=== PATIENT | female | born 1975 | race Hispanic/Latino ===

== ENCOUNTER 2018-04-13 05:46 | Day surgery (SDC) | payer MEDICAID ==
[2018-04-13] MEDS ORDERED: NACL BACTERIOSTATIC INFILTRATI ONE (06:42)
[2018-04-13] MEDS ORDERED: VERSED ONE ×2 (06:47→07:00)
[2018-04-13] MEDS ORDERED: LACTATED RINGERS 1,000 ML ONE (06:47)
[2018-04-13] MEDS ORDERED: DILAUDID ONE ×2 (07:00→08:27)
[2018-04-13] MEDS ORDERED: DILAUDID IV PRN (07:11)
[2018-04-13] MEDS ORDERED: PEPCID IV ONE (07:28)
[2018-04-13] MEDS ORDERED: BENADRYL ONE (07:28)
[2018-04-13] MEDS ORDERED: VALIUM ONE (07:28)
[2018-04-13] MEDS ORDERED: VERSED IV ONE (07:53)
[2018-04-13] MEDS ORDERED: DIPRIVAN 10 MG/ML IV ONE ×2 (07:57→08:28)
[2018-04-13] MEDS ORDERED: SUBLIMAZE ONE (07:57)
[2018-04-13] MEDS ORDERED: XYLOCAINE MPF 2% ONE (07:57)
[2018-04-13] MEDS ORDERED: VERSED IV NR (08:00)
[2018-04-13] MEDS ORDERED: LACTATED RINGERS 1,000 ML IV SCH ×2 (08:00→10:00)
[2018-04-13] MEDS ORDERED: PEPCID IV NR (08:00)
[2018-04-13] MEDS ORDERED: ANCEF/STERILE WATER 2 GM/20 ML 2 GM/20 ML SYRINGE IV ONE (08:40)
[2018-04-13] MEDS ORDERED: ANCEF/STERILE WATER 2 GM/20 ML IV NR (10:00)
--- NOTE | 2018-04-13 11:02 | Short Stay Summary ---
Short Stay Documentation Date of service: 04/13/18 - History H&P: obtained from office - Allergies and Medications Current Medications: Allergies ciprofloxacin [From Cipro] Allergy (Verified 04/07/18 13:48) Seizure erythromycin base Allergy (Verified 04/07/18 13:48) Anaphylaxis ketorolac [From Toradol] Allergy (Verified 04/07/18 13:48) Head swells, itching sulfamethoxazole [From Bactrim] Adverse Reaction (Verified 04/13/18 07:55) Diarrhea trimethoprim [From Bactrim] Adverse Reaction (Verified 04/13/18 07:56) Diarrhea PT STATES IT "REALLY MESSES ME UP" BUT I DON'T HAVE A SEIZURE WITH IT SO I'M OKAY TAKING IT. I TOLD HER I WAS STILL GOING TO LIST IT AN ALLERGY Home Medications Medication Instructions Recorded Confirmed Last Taken Type HYDROcodone/APAP 5-325 [[place] 1 each PO Q6HR PRN 04/07/18 04/13/18 2 Weeks Ago History 5/325] ~03/30/18 Active Medications Cefazolin Sodium (Ancef/Sterile Water 2 Gm/20 Ml) 2 gm IV PREOP NR Stop: 04/13/18 23:59 Famotidine (Pepcid) 20 mg IV PREOP NR Stop: 04/13/18 20:00 Hydromorphone HCl (Dilaudid) 0.5 mg IV Q10MIN PRN PRN Reason: Pain , Severe (7-10) Stop: 04/13/18 20:00 Last Admin: 04/13/18 10:05 Dose: 0.5 mg Documented by: Lactated Ringer's (Lactated Ringers) 1,000 mls @ 100 mls/hr IV DIRECT LYNNE Midazolam HCl (Versed) 2 mg IV PREOP NR Stop: 04/13/18 23:59 - Brief post op/procedure progress note Date of procedure: 04/13/18 Pre-op diagnosis: Right renal stone 13mm Post-op diagnosis: same Procedure: right renal eswl Anesthesia: GETA Findings: good vis Surgeon: ZENA KING Estimated blood loss: minimal Pathology: none Condition: stable - Hospital course Hospital course: orpacc[place]ome - Disposition Condition at discharge: Good Disposition: DC-01 TO HOME OR SELFCARE Short Stay Discharge Plan Activity: advance as tolerated Diet: advance as tolerated Follow up with: JACINDA MORALES MD [Staff Physician] - 7 Days
[2018-04-13 11:05] VITALS: BP 112/66
--- NOTE | 2018-04-17 10:22 | Operative Report ---
PREOPERATIVE DIAGNOSIS: Right renal 13 mm stone. POSTOPERATIVE DIAGNOSIS: Right renal 13 mm stone. PROCEDURE: Right renal extracorporeal shockwave lithotripsy. SURGEON: Burton Otero MD ANESTHESIA: General. SPECIMENS: None. ESTIMATED BLOOD LOSS: Minimal. COMPLICATIONS: None. FINDINGS: Good visualization, mild decreased density at the end of procedure. CLINICAL INDICATIONS: The patient counseled RCBA, antibiotics, SCD. DESCRIPTION OF PROCEDURE: The patient was transferred to the OR suite in supine position, anesthesia begun. Biplanar fluoroscopy was used to target the stone with an F2, good visualization of the stone. A total of 2500 shocks were delivered, maximum of 7 kilovolts, intermittent repositioning done as necessary. At the end of the first procedure, there was [id number] decreased density of the stone. The patient was awakened and transferred to PACU in good and stable condition. PLAN: Stage for future additional treatment of stone. JOB# [id number] ATS/NTS
== END 2018-04-13 05:47 | disposition home or self-care (01) ==
LOC: OR 05:46
PROVIDERS: ATTEND Urology
DX: N20.0 Calculus of kidney (principal); K21.9 Gastro-esophageal reflux disease without esophagitis; N18.6 End stage renal disease; M19.90 Unspecified osteoarthritis, unspecified site; D64.9 Anemia, unspecified; N17.9 Acute kidney failure, unspecified; F41.9 Anxiety disorder, unspecified; F17.200 Nicotine dependence, unspecified, uncomplicated; Z79.899 Other long term (current) drug therapy; Z88.1 Allergy status to other antibiotic agents; Z88.2 Allergy status to sulfonamides; Z88.8 Allergy status to other drugs, medicaments and biological substances; Z72.89 Other problems related to lifestyle; Z99.2 Dependence on renal dialysis; Z93.6 Other artificial openings of urinary tract status; Z90.710 Acquired absence of both cervix and uterus; Z98.891 History of uterine scar from previous surgery; Z98.890 Other specified postprocedural states
CPT/HCPCS: 50590; 82803; J0690; J1170; J1200; J2250; J2704; J3010; J7120